=== PATIENT | female | born 1940 | race Caucasian/White ===

== ENCOUNTER 2018-05-02 12:24 | Inpatient (IN) | payer OTHER ==
[~2018-05-02] VITALS: Ht 157.5 cm; Wt 96.8 kg
[2018-05-02 13:04] LABS: BASOPHILS % (AUTO) 0.6 % (0.0-5.0); EOSINOPHILS % (AUTO) 3.1 % (0.0-8.0); HEMATOCRIT 38.1 % (36-48); LYMPHOCYTES % (AUTO) 25.8 % (21.0-51.0); MEAN CORPUSCULAR HEMOGLOBIN 27.8 pg (27.0-33.0); MEAN CORPUSCULAR HGB CONC 31.7 g/dL (32.0-36.0); MEAN CORPUSCULAR VOLUME 87.5 fL (79-99); MONOCYTES % (AUTO) 7.7 % (3.0-13.0); NEUTROPHILS % (AUTO) 62.8 % (40.0-77.0); PLATELET COUNT (AUTO) 341 K/uL (130-400); RED BLOOD CELL COUNT(AUTO) 4.35 MIL/uL (4.00-5.50); WHITE BLOOD COUNT (AUTO) 8.9 K/uL (4.8-10.8)
[2018-05-02 13:07] LABS: CREATININE 0.9 mg/dL (0.5-1.5)
[2018-05-02 13:11] LABS: ALBUMIN 3.7 g/dL (3.5-5.0); BILIRUBIN,TOTAL 0.3 mg/dL (0.2-1.0); MAGNESIUM 1.9 mg/dL (1.80-2.40); TOTAL PROTEIN, SERUM 7.9 g/dL (6.0-8.3)
[2018-05-02 14:07] LABS: INR 1.03 (0.85-1.15); PARTIAL THROMBOPLASTIN TIME 27.4 SEC (26.3-35.5); PROTHROMBIN TIME 10.8 SEC (9.6-11.6)
[2018-05-02] MEDS ORDERED: FUROSEMIDE 20 MG TABLET ONE (14:54)
[2018-05-02] MEDS ORDERED: ASPIRIN 325 MG TABLET ONE (15:06)
[2018-05-02] MEDS ORDERED: ACETAMINOPHEN 325 MG TAB PO PRN ×2 (16:30)
[2018-05-02] MEDS ORDERED: LACTULOSE 20 GM/30 ML UDCUP PO PRN (16:30)
[2018-05-02] MEDS: GEMFIBROZIL 600 MG TABLET PO SCH (16:30)
[2018-05-02] MEDS ORDERED: ONDANSETRON HCL 4 MG/2 ML VIAL IV PRN (16:30)
[2018-05-02] MEDS ORDERED: ATORVASTATIN CALCIUM 40 MG TABLET PO SCH (21:00)
[2018-05-02] MEDS ORDERED: ENOXAPARIN SODIUM 100 MG/1 ML SQ SCH (21:00)
[2018-05-02] MEDS: SOTALOL HCL 80 MG TABLET PO SCH (21:00)
[2018-05-03] MEDS ORDERED: ENOXAPARIN SODIUM 100 MG/1 ML SQ ONE ×2 (00:33→08:25)
[2018-05-03] MEDS: GEMFIBROZIL 600 MG TABLET PO SCH ×2 (07:30→16:30)
[2018-05-03] MEDS ORDERED: DILTIAZEM HCL 120 MG CAP.SR.24H PO ONE (08:02)
[2018-05-03] MEDS ORDERED: PANTOPRAZOLE SODIUM 40 MG TABLET.DR PO ONE (08:24)
[2018-05-03] MEDS ORDERED: DILTIAZEM HCL 120 MG CAP.SR.24H PO SCH (09:00)
[2018-05-03] MEDS: SOTALOL HCL 80 MG TABLET PO SCH (09:00)
[2018-05-03] MEDS ORDERED: PANTOPRAZOLE SODIUM 40 MG TABLET.DR PO SCH (09:00)
[2018-05-03 14:43] VITALS: BP 146/92
[2018-05-03] MEDS ORDERED: ATOR-2 PO (15:02)
[2018-05-03] MEDS ORDERED: ASPI-1012 PO (15:02)
[2018-05-03] MEDS ORDERED: SOTA80TA PO (15:02)
[2018-05-03] MEDS ORDERED: DILT240C3 PO (15:02)
[2018-05-03] MEDS ORDERED: GEMF600T5 PO (15:02)
[2018-05-03] MEDS ORDERED: RIVA20TA PO (15:21)
[2018-05-03 15:40] VITALS: BP 114/74
[2018-05-03] MEDS ORDERED: RIVAROXABAN 20 MG TABLET PO SCH (21:00)
== END 2018-05-03 17:45 | disposition home or self-care (01) | DRG 310 ==
LOC: EDH 12:24 → EDHIP 16:29 → 2DH 05-03 14:36
PROVIDERS: ADMIT Internal Medicine; ATTEND Internal Medicine
DX: I48.0 Paroxysmal atrial fibrillation (principal); I10 Essential (primary) hypertension; E78.1 Pure hyperglyceridemia; E78.2 Mixed hyperlipidemia; I25.10 Atherosclerotic heart disease of native coronary artery without angina pectoris; E66.9 Obesity, unspecified; Z68.39 Body mass index [BMI] 39.0-39.9, adult; Z90.49 Acquired absence of other specified parts of digestive tract; Z87.11 Personal history of peptic ulcer disease; Z87.891 Personal history of nicotine dependence
CPT/HCPCS: 36415; 71045; 80053; 82550; 83735; 83880; 84484; 85025; 85610; 85730; 93005; G0378; J1650